=== PATIENT | male | born 1970 | race African-American/Black ===

== ENCOUNTER → 2020-03-07 | Outpatient (CLI) | payer BC ==
--- NOTE | 2020-03-07 09:56 | DRAGON STRESS TEST REPORT ---
Exercise stress test Date: March 07, 2020 Referring physician: Soledad Tate PA-C. Performing physician: Abelino Hewitt MD Indication: Hypertension, diabetes mellitus, dyslipidemia. Treadmill stress test is requested. Clinical history 49-year-old male with systemic hypertension, diabetes mellitus, dyslipidemia as well as nicotine dependence. Exercise treadmill stress test was requested. Procedure The patient presented to the stress lab. The patient exercised on the treadmill according to [place] protocol for a total of 9 minutes and 35 seconds achieving a maximum heart rate of 164 bpm which was 95 % of maximum predicted of 171 bpm. The maximum workload was 11.9 METS. The presenting EKG showed sinus bradycardia at 57 Bpm. The initial blood pressure was 134/92 mmHg. Upon exercise the heart rate nestor to a maximum of 164 beats per minute and the blood pressure nestor to a maximum of 220/71 mmHg. The patient had appropriate increment in heart rate and hypertensive response with exercise. The exercise EKG was negative for myocardial ischemia although this assessment is limited to some measure by movement artifact. The recovery EKG did not reveal any evidence of myocardial ischemia. The patient tolerated the exercise well and did not report chest pain or dyspnea. The test was terminated on account of patient fatigue and patient having achieved target heart rate. The patient's EKG and vital signs were monitored throughout the procedure. Conclusion The exercise EKG is negative for myocardial ischemia. This conclusion is limited by significant movement artifact at peak exercise. Moderate exercise tolerance. Normal heart rate and hypertensive response to exercise. MTDD
== END ==
LOC: SP 07:18
PROVIDERS: ATTEND Physician Assistant
DX: I10 Essential (primary) hypertension (principal)
CPT/HCPCS: 93017